=== PATIENT | female | born 1945 | race Caucasian/White ===

== ENCOUNTER 2017-12-14 11:35 | Emergency (ER) | payer MEDICARE, SELFPAY ==
--- NOTE | 2017-12-14 11:40 | DI.RAD.S_ITS ---
PROCEDURE: XR ANKLE RT MIN 3V INDICATIONS: Ankle injury. TECHNIQUE: AP, mortise, and lateral views of the ankle were acquired. COMPARISON: None. FINDINGS: Bones: There is an acute oblique fracture through the distal fibula which appears to terminate at the syndesmosis. There is also a small avulsion fracture at the inferior tip of the medial malleolus. There is mild widening of the lateral gutter of the ankle mortise, concerning for ankle instability. Soft tissues: There is a small ankle joint effusion. There is soft tissue swelling surrounding the ankle. IMPRESSION: Acute oblique right distal fibular fracture with additional avulsion fracture of the inferior tip of the right medial malleolus. Mild widening of the lateral gutter of the ankle mortise is concerning for ankle instability. Dictated by: Biju De La Cruz M.D. on 12/14/2017 at 12:18 Approved by: Biju De La Cruz M.D. on 12/14/2017 at 12:23
[2017-12-14 11:41] VITALS: BP 166/76; PULSE 73; RESP 18; TEMP 36.7; O2SAT 100; BMI 28.1
[2017-12-14 12:16] VITALS: BP 136/74; PULSE 68; RESP 15; O2SAT 98
--- NOTE | 2017-12-14 12:16 | PC.NURSE ---
Pt [place] the [place] and felt dizzy all of the sudden and may have blacked out for a very brief moment. She denies any chest pain or shortness of breath or palpitations at this time, but did say she was feeling a little sweaty on her forehead at the time. No hx of syncopal episodes or any cardiac issues in the past.
[2017-12-14 13:00] VITALS: BP 122/72; PULSE 67; RESP 14; O2SAT 97
[2017-12-14 13:34] VITALS: BP 140/73; PULSE 69; RESP 15; O2SAT 100
[2017-12-14 14:02] VITALS: BP 127/97; PULSE 70; RESP 15; O2SAT 100
--- NOTE | 2017-12-14 20:52 | ED_ITS ---
HPI - Extremity Injury (Lower) General Chief Complaint: Extremity Injury, Lower Stated Complaint: GLF, R ankle swelling Time Seen by Provider: 12/14/17 11:40 Source: patient and family Mode of arrival: ambulatory Limitations: no limitations History of Present Illness HPI Narrative: 72-year-old female with history of hypothyroid presents to the emergency department with an ankle injury after she became dizzy at the bank and fell. She denies any head neck or back pain. She is otherwise completely asymptomatic. Her injury is closed, isolated and neurovascularly intact. She denies any ft, knee or hip pain MD complaint: ankle injury Onset (ago): minute(s) Injury: Right: foot Type of Injury: inversion Place: street/outdoors Severity: moderate Relieving factors: immobilization Exacerbating factors: weight bearing and movement Context: direct blow Associated symptoms: snap/pop sensation Other symptoms: none Related Data Home Medications Medication Instructions Recorded Confirmed calcitriol 1 cap PO DAILY 12/14/17 12/14/17 calcium carbonate 2 tab PO DAILY 12/14/17 12/14/17 levothyroxine 75 mcg PO DAILY 12/14/17 12/14/17 venlafaxine 1 cap PO DAILY 12/14/17 12/14/17 Previous Rx's Medication Instructions Recorded hydrocodone-acetaminophen 1 tab PO Q4-6H PRN #20 tab 12/14/17 Allergies Allergy/AdvReac Type Severity Reaction Status Date / Time No Known Drug Allergies Allergy Verified 12/14/17 12:25 Review of Systems Review of Systems All systems reviewed & are unremarkable except as noted in HPI and below Constitutional Denies chills, Denies fever(s), Denies lethargy and Denies weakness Eyes Denies change in vision, Denies eye discharge, Denies irritation and Denies loss of vision ENT Ears, Nose, Mouth, and Throat: Denies change in voice, Denies neck pain and Denies sore throat Cardiovascular Denies chest pain, Denies irregular heart rhythm, Denies lightheadedness, Denies palpitations, Denies dyspnea, Denies dyspnea on exertion and Denies orthopnea Respiratory Denies cough, Denies dyspnea, Denies dyspnea on exertion and Denies wheezing Gastrointestinal Gastrointestinal: Denies abdominal pain, Denies change in bowel habits, Denies diarrhea, Denies nausea and Denies vomiting Genitourinary Denies hematuria, Denies flank pain, Denies urinary incontinence and Denies urinary urgency Musculoskeletal Reports joint swelling, Reports limited range of motion and Denies neck pain Integumentary/Breasts Denies pruritus, Denies erythema, Denies rash and Denies wounds Neurologic Denies confusion, Denies loss of vision and Denies weakness Psychiatric Denies anxiety, Denies confusion, Denies depression, Denies homicidal ideation and Denies suicidal ideation Endocrine Denies palpitations Hematologic/Lymphatic Denies easy bruising Allergic/Immunologic Denies wheezing PFSH Social History Smoking Status: Never smoker Exam Narrative Exam Narrative: GEN: AOx3 and in mild distress EYES: Pupils are equal, round, and reactive to light and accommodation. Extraoccular muscles are intact bilaterally. There is no subconjunctival hemorrhage or exudate. CHEST: Lungs are clear to auscultation bilaterally and free of wheezes, rales, or rhonchi. Heart rate is regular rhythm, there are no murmurs, clicks, rubs, or gallops. There is no chest wall tenderness. ABD: Abdomen is soft and nontender. There is no guarding or rebound. Bowel sounds are normal in all 4 quadrants. There is no mass or organomegaly. EXT: Full but painful range of motion of right ankle. This is closed, isolated , and neurovascularly intact. Swelling and tenderness to palpation over lateral malleolus. SKIN: Warm, pink, and dry. No erythema or rash Initial Vital Signs Initial Vital Signs: Vital Signs Temperature 98.0 F 12/14/17 11:41 Pulse Rate 73 12/14/17 11:41 Respiratory Rate 18 12/14/17 11:41 Blood Pressure 166/76 H 12/14/17 11:41 Pulse Oximetry 100 12/14/17 11:41 Procedures Orthopedic Splinting/Casting Injury #1: Side: right Lower Extremity Injury Location: ankle Lower Extremity Immobilizer: boot orthosis Course Orders Ordered: ED Orders 12/14/17 11:40 XR ankle RT min 3V Stat EKG-12 Lead Stat Consultations Consultation #1: Dr. Espinal has reviewed the images and recommends splinting, nonweightbearing, crutches and follow-up. Vital Signs - 8 hr 12/14/17 13:00 12/14/17 13:34 12/14/17 14:02 Pulse Rate 67 69 70 Respiratory Rate 14 15 15 Blood Pressure [Left Arm] 122/72 H 140/73 H 127/97 H Pulse Oximetry 97 100 100 Discharge Plan Departure Patient Disposition: Home, Self-Care Clinical Impression: Fracture of distal end of right fibula Discharge Date/Time: 12/14/17 14:27 Interventions: ED Discharge Assessment Last Done: 12/14/17 14:26 Instructions: Ankle Fracture Activity Restrictions/Additional Instructions: NO WEIGHT BEARING NO WEIGHT BEARING NO WEIGHT BEARING You have been given an ortho boot for comfort and stabilization of your fracture , however this is not intended to be walked on. No weight-bearing of your fractured ankle Call [facility] for follow up, give the office a call. Let them know you were seen in the ER and I've spoken with Dr. Espinal and he wishes you to be seen in the office. Prescriptions: New hydrocodone-acetaminophen 5-325 mg tablet 1 tab PO Q4-6H PRN (Reason: pain) Qty: 20 RF: 0 No Action venlafaxine 37.5 mg capsule,extended release 24hr 1 cap PO DAILY RF: 0 levothyroxine 75 mcg tablet 75 mcg PO DAILY RF: 0 calcitriol 0.5 mcg capsule 1 cap PO DAILY RF: 0 calcium carbonate 2 tab PO DAILY RF: 0 Referrals: Carmelo Mendoza MD [Primary Care Provider] - Aditya Espinal MD [Physician] -
== END 2017-12-14 14:27 | disposition home or self-care (01) ==
PROVIDERS: Emergency Provider Emergency Medicine; PCP Family Medicine
DX: S82.831A Other fracture of upper and lower end of right fibula, initial encounter for closed fracture (principal); W19.XXXA Unspecified fall, initial encounter; R42 Dizziness and giddiness
CPT/HCPCS: 73610; 82962; 93005; 99283; 99284

== ENCOUNTER → 2018-08-17 11:24 | Outpatient (CLI) | payer MEDICARE, SELFPAY ==
--- NOTE | 2018-08-17 | DI.RAD.S_ITS ---
PROCEDURE: XR ELBOW RT MIN 3V INDICATIONS: RIGHT UPPER EXTREMITY PAIN POST FALL TECHNIQUE: 3 views of the elbow were acquired. COMPARISON: None. FINDINGS: Bones: No fractures or dislocations. No suspicious bony lesions. Soft tissues: No elbow joint effusion. No suspicious soft tissue calcifications. IMPRESSION: No trauma found, no effusion present, mild degenerative changes are incidentally noted at the elbow joint. Dictated by: Reynold Breen M.D. on 08/17/2018 at 13:18 Approved by: Reynold Breen M.D. on 08/17/2018 at 13:26
--- NOTE | 2018-08-17 | DI.RAD.S_ITS ---
PROCEDURE: XR SHOULDER RT MIN 2V INDICATIONS: RIGHT UPPER EXTREMITY PAIN POST FALL TECHNIQUE: 3 views of the shoulder were acquired. COMPARISON: [facility], , SHOULDER MINIMUM 2VIEW RIGHT, 11/26/2014, 14:48. FINDINGS: Bones: No dislocations but on the transscapular view there is a unusual lucency at the inferior tip of the scapula where a fracture would be suspected in this clinical circumstance, versus osteolytic process. No suspicious bony lesions. Visualized ribs appear intact. Soft tissues: No suspicious soft tissue calcifications. IMPRESSION: Please correlate for presence or absence of tenderness at the inferior aspect of the scapula. On the transscapular view there is a significant concern for either a fracture at this site or an osteolytic process. The area of concern is represented in several of the montage panel images, and seen on only one of the [address] scanning may be warranted depending on clinical status. Dictated by: Reynold Breen M.D. on 08/17/2018 at 13:02 Approved by: Reynold Breen M.D. on 08/17/2018 at 13:02
--- NOTE | 2018-08-17 | DI.RAD.S_ITS ---
PROCEDURE: XR HUMERUS RT 2V INDICATIONS: RIGHT UPPER EXTREMITY PAIN POST FALL TECHNIQUE: 2 views of the humerus were acquired. COMPARISON: [facility], , HUMERUS 2V RIGHT, 11/26/2014, 14:48. FINDINGS: Bones: No fractures or dislocations. No suspicious bony lesions. Soft tissues: No suspicious soft tissue calcifications. IMPRESSION: No trauma found. 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 Dictated by: Reynold Breen M.D. on 08/17/2018 at 13:26 Approved by: Reynold Breen M.D. on 08/17/2018 at 13:33
== END ==
PROVIDERS: PCP Family Medicine; Visit Provider Family Medicine
DX: M79.601 Pain in right arm (principal); M19.011 Primary osteoarthritis, right shoulder
CPT/HCPCS: 73030; 73060; 73080

== ENCOUNTER → 2018-08-30 11:50 | Outpatient (CLI) | payer MEDICARE, SELFPAY ==
--- NOTE | 2018-08-30 | DI.CT.S_ITS ---
PROCEDURE: CT UE RT W CON INDICATIONS: Right scapular pain. Abnormal X-ray TECHNIQUE: After the administration of intravenous contrast, 3 mm axial sections acquired of the right shoulder, with coronal and sagittal reformats. COMPARISON: [facility], CR, XR HUMERUS RT 2V, 08/17/2018, 11:31. [facility], CR, XR SHOULDER RT MIN 2V, 08/17/2018, 11:31. [facility], CR, XR ELBOW RT MIN 3V, 08/17/2018, 11:31. FINDINGS: Image quality: Diagnostic. Bones: No acute fracture or dislocation is identified involving the right scapula. Specifically, the inferior margin of the scapula is intact. No fractures involving the distal clavicle or of the proximal humerus are evident. Mild to moderate degenerative changes of the glenohumeral joint are present. There are moderate to severe degenerative changes of the acromioclavicular joint. Proximal migration of the humeral head with respect to the glenoid with near undersurface pseudoarticulation of the acromion with the superior margin of the humeral head is present. Soft tissues: There is no soft tissue mass or drainable fluid collection. There appears to be a glenohumeral joint effusion, which is small in size. No suspicious soft tissue enhancement is evident. There is moderate supraspinatus and infraspinatus muscle atrophy, suggesting chronic injuries to these tendons, which are likely full-thickness tears. No axillary lymphadenopathy is identified. The vascular structures of the axilla. Be grossly within normal limits. The included portions of the lung are unremarkable on the right, but not adequately characterized. IMPRESSION: 1. No acute fractures of the right shoulder. Specifically, the scapula is intact. 2. Mild to moderate degenerative changes of the glenohumeral joint. 3. Moderate to severe degenerative changes of the acromioclavicular joint. 4. 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 Please correlate clinically. Dictated by: Kp Vasques M.D. on 08/30/2018 at 13:33 Approved by: Kp Vasques M.D. on 08/30/2018 at 13:38
[2018-08-30 13:07] LABS: Alanine Aminotransferase 21 IU/L (9-52); Albumin 4.4 g/dL (3.5-5.0); Albumin Globulin Ratio 1.5 (1.0-2.8); Alkaline Phosphatase 65 U/L (38-126); Aspartate Aminotransferase 19 IU/L (14-36); BUN Creatinine Ratio 17.8 (6-22); Bilirubin Total 1.5 mg/dL (0.2-1.3); Blood Urea Nitrogen 16 mg/dL (7-17); Calcium 9.5 mg/dL (8.4-10.2); Carbon Dioxide 27 mmol/L (22-32); Chloride 100 mmol/L (98-107); Estimated Glomerular Filt Rate > 60.0 mL/min (>60); Globulin 2.9 g/dL (1.7-4.1); Glucose 93 mg/dL (80-110); HEMOLYSIS < 15 (0-50); Potassium 4.5 mmol/L (3.4-5.1); Sodium 138 mmol/L (137-145); Total Protein 7.3 g/dL (6.3-8.2)
== END ==
PROVIDERS: PCP Family Medicine; Visit Provider Family Medicine
DX: M25.511 Pain in right shoulder (principal); M19.011 Primary osteoarthritis, right shoulder
CPT/HCPCS: 36415; 73201; 80053; Q9967

== ENCOUNTER → 2019-02-21 10:02 | Outpatient (CLI) | payer MEDICARE, SELFPAY | PROVIDERS: PCP Family Medicine; Referring Provider Internal Medicine Endocrinology, Diabetes & Metabolism; Visit Provider Family Medicine | DX: M85.852 Other specified disorders of bone density and structure, left thigh (principal); Z78.0 Asymptomatic menopausal state; E07.9 Disorder of thyroid, unspecified; Z85.3 Personal history of malignant neoplasm of breast | CPT/HCPCS: 77080 ==

== ENCOUNTER → 2020-09-03 09:55 | Outpatient (CLI) | payer MEDICARE, SELFPAY ==
[2020-09-03] MEDS: COVID-19 VACC #1, MRNA(MOD) 100 MCG/0.5 ML VIAL IM (10:05)
== END ==
PROVIDERS: Visit Provider Internal Medicine
DX: Z23 Encounter for immunization (principal)
CPT/HCPCS: 0011A; 91301

== ENCOUNTER → 2020-10-02 09:52 | Outpatient (CLI) | payer MEDICARE, SELFPAY ==
[2020-10-02] MEDS: COVID-19 VACC #2, MRNA(MOD) 100 MCG/0.5 ML VIAL IM (10:02)
== END ==
PROVIDERS: Visit Provider Internal Medicine
DX: Z23 Encounter for immunization (principal)
CPT/HCPCS: 0012A; 91301

== ENCOUNTER → 2023-04-21 15:45 | Outpatient (CLI) | payer MEDICARE, SELFPAY ==
--- NOTE | 2023-04-21 15:50 | DI.RAD.S_ITS ---
PROCEDURE: XR TIBIA FUBULA RT 2V INDICATIONS: leg pain TECHNIQUE: 3 views of the tibia and fibula were acquired. COMPARISON: None. FINDINGS: Bones: No fractures or dislocations. No suspicious bony lesions. Soft tissues: No suspicious soft tissue calcifications or masses. IMPRESSION: No lower leg fracture or dislocation. No suspicious bony lesions or gross soft tissue abnormalities. Dictated by: Manjit Hinds M.D. on 04/21/2023 at 17:00 Approved by: Manjit Hinds M.D. on 04/21/2023 at 17:01
== END ==
PROVIDERS: Referring Provider Internal Medicine; Visit Provider Internal Medicine
DX: M79.604 Pain in right leg (principal)
CPT/HCPCS: 73590

== ENCOUNTER 2023-11-18 09:43 | Emergency (ER) | payer MEDICARE, SELFPAY ==
[2023-11-18 09:53] VITALS: BP 164/77; PULSE 84; RESP 16; TEMP 36.8; O2SAT 98; BMI 28.3
--- NOTE | 2023-11-18 10:32 | ED_ITS ---
HPI - Extremity Problem General Chief complaint: Extremity Problem,Nontraumatic Stated complaint: L leg aching Time Seen by Provider: 11/18/23 10:06 Source: patient and family Mode of arrival: Wheelchair History of Present Illness HPI Narrative: 78-year-old female who is here for evaluation of a left leg pain. She states that a couple days ago when she got out of bed she had discomfort. Is in the front and lateral aspect of the left leg. Has had progressively worsening pain since then. No pain with flexion-extension of the ankle. No pain on the back of the leg. No knee pain. She contacted her primary doctor's office who advis ed she come to the emergency department for further evaluation. No skin changes. She did take an Aleve without much improvement. Related Data Home Medications Medication Instructions Recorded Confirmed calcitriol 0.5 mcg capsule 1 cap PO DAILY 12/14/17 12/14/17 calcium carbonate 2 tab PO DAILY 12/14/17 12/14/17 levothyroxine 75 mcg tablet 75 mcg PO DAILY 12/14/17 12/14/17 venlafaxine 37.5 mg 1 cap PO DAILY 12/14/17 12/14/17 capsule,extended release 24 hr Previous Rx's Medication Instructions Recorded hydrocodone 5 mg-acetaminophen 325 1 tab PO Q4-6H PRN pain #20 tabs 12/14/17 mg tablet tramadol 50 mg tablet 50 mg PO Q8H PRN pain #10 tabs 11/18/23 Allergies Allergy/AdvReac Type Severity Reaction Status Date / Time No Known Drug Allergies Allergy Verified 11/18/23 10:00 Review of Systems Review of Systems Narrative: See HPI Patient History Social History Smoking Status: Never smoker Smoking Status: Never smoker alcohol intake frequency: holidays/special occasions only Substance Use Type: does not use Exam Initial Vital Signs Initial Vital Signs: Vital Signs Temperature 98.3 F 11/18/23 09:53 Pulse Rate 84 11/18/23 09:53 Respiratory Rate 16 11/18/23 09:53 Blood Pressure 164/77 H 11/18/23 09:53 Pulse Oximetry 98 11/18/23 09:53 Oxygen Delivery Method Room Air 11/18/23 09:53 Skin General: no rashes or lesions noted Neuro General: patient alert, patient awake and patient oriented x3 Extrem Other: She reports discomfort over the left tibialis anterior muscle region. No posterior leg tenderness. No knee tenderness. Course Orders Ordered: ED Orders 11/18/23 10:32 XR tibia fibula LT 2V Stat Discontinued Medications Tramadol HCl (Tramadol 50 Mg Tablet) 50 mg PO NOW ONE Stop: 11/18/23 11:09 Last Admin: 11/18/23 11:16 Dose: 50 mg Documented By: [facility] Vital Signs Vital signs: Vital Signs - 8 hr 11/18/23 09:53 Temperature 98.3 F Pulse Rate 84 Respiratory Rate 16 Blood Pressure 164/77 H Pulse Oximetry 98 Oxygen Delivery Method Room Air MDM - Extremity (Nontraumatic) Imaging Data Extremity x-ray #1: Radiologist's Impression: PROCEDURE: XR TIBIA FIBULA LT 2V INDICATIONS: Left mid tibia pain TECHNIQUE: 2 views of the tibia and fibula were acquired. COMPARISON: None. FINDINGS: Bones: No fractures or dislocations. No suspicious bony lesions. Soft tissues: No suspicious soft tissue calcifications or masses. IMPRESSION: No acute bony abnormality. [facility] Narrative Medical decision making narrative: I have low suspicion that this is a DVT. The discomfort is on the anterior lateral portion of the leg. Over the tibialis anterior muscle. There was no signs of cellulitis. No fracture on the x-ray I did discuss this with the patient. There is no indication for antibiotics. Will discharge patient home with conservative measures. She was given return precautions. She expressed understanding and agreement. Discharge Plan Departure Patient Disposition: Home Clinical Impression: Muscle strain of left lower leg Instructions: How To Perform RICE (Rest, Ice, Compress, Elevate) Activity Restrictions/Additional Instructions: Continue to take all of your medications as directed. You can walk 1 your leg as tolerated. Recommend conservative measures and continue to take anti-infl ammatories. Return to the emergency department for new symptoms. Prescriptions: New tramadol 50 mg tablet 50 mg PO Q8H PRN (Reason: pain) Qty: 10 0RF No Action venlafaxine 37.5 mg capsule,extended release 24hr 1 cap PO DAILY levothyroxine 75 mcg tablet 75 mcg PO DAILY calcitriol 0.5 mcg capsule 1 cap PO DAILY calcium carbonate 2 tab PO DAILY hydrocodone-acetaminophen 5-325 mg tablet 1 tab PO Q4-6H PRN (Reason: pain) Qty: 20 0RF Stand Alone Forms: Patient Portal/API
--- NOTE | 2023-11-18 10:32 | DI.RAD.S_ITS ---
PROCEDURE: XR TIBIA FIBULA LT 2V INDICATIONS: Left mid tibia pain TECHNIQUE: 2 views of the tibia and fibula were acquired. COMPARISON: None. FINDINGS: Bones: No fractures or dislocations. No suspicious bony lesions. Soft tissues: No suspicious soft tissue calcifications or masses. IMPRESSION: No acute bony abnormality. Dictated by: Rachell Dixon MD, PhD on 11/18/2023 at 10:51 Approved by: Rachell Dixon MD, PhD on 11/18/2023 at 10:51
[2023-11-18] MEDS: TRAMADOL 50 MG TABLET PO (11:16)
== END 2023-11-18 11:22 | disposition home or self-care (01) ==
PROVIDERS: Emergency Provider Emergency Medicine
DX: S86.912A Strain of unspecified muscle(s) and tendon(s) at lower leg level, left leg, initial encounter (principal); X58.XXXA Exposure to other specified factors, initial encounter
CPT/HCPCS: 73590; 99283

== ENCOUNTER → 2023-12-01 18:45 | Outpatient (CLI) | payer MEDICARE, SELFPAY ==
--- NOTE | 2023-12-01 18:47 | DI.MRI.S_ITS ---
PROCEDURE: MR LUMBAR SPINE WO CON INDICATIONS: LEFT LUMBAR RADICULOPATHY TECHNIQUE: Noncontrast sagittal T1 spin echo and T2 fast echo, sagittal STIR, and T2 fast spin echo through the lumbar spine. In cases with scoliosis, additional coronal T2 fast spin echo may be performed. COMPARISON: None. FINDINGS: Image quality: Excellent. Alignment and Curvature: There is trace anterolisthesis of L4 on L5. Bone Marrow: Marrow is of normal overall signal. Minimal reactive endplate changes at L4-5. No acute vertebral body compression fractures. Spinal Cord: Conus medullaris terminates at the L1 level. Visualized cord demonstrates normal signal and size. Paraspinous Soft Tissues: No paravertebral masses. Discs: Multilevel [id number] disc desiccation most severe at L4-5. T12-L1: No disc bulge, spinal stenosis or foraminal narrowing. L1-L2: Minimal disc bulge without spinal stenosis or foraminal narrowing. Facet and ligamentum flavum hypertrophy are present. L2-L3: Mild disc bulge with mild spinal stenosis. Facet and ligamentum flavum hypertrophy are present. L3-L4: Mild disc bulge with moderate spinal stenosis. Moderate left and minimal right foraminal narrowing with facet and ligamentum flavum hypertrophy. L4-L5: Mild disc bulge with [id number] spinal stenosis. Moderate to severe right and moderate left foraminal narrowing with facet and ligamentum flavum hypertrophy. L5-S1: Mild disc bulge without spinal stenosis or foraminal narrowing. Facet hypertrophy is present. IMPRESSION: Multilevel disc bulges. Multilevel spinal stenosis most severe at L3-4 secondary to disc bulge with contributing effect of facet/ligamentum flavum arthropathy. Multilevel foraminal narrowing most severe at L4-5 secondary to facet/ligamentum flavum arthropathy. Dictated by: Nancy Keyes M.D. on 12/02/2023 at 16:50 Approved by: Nancy Keyes M.D. on 12/02/2023 at 16:52
== END ==
PROVIDERS: PCP Internal Medicine
DX: M51.16 Intervertebral disc disorders with radiculopathy, lumbar region (principal); M51.17 Intervertebral disc disorders with radiculopathy, lumbosacral region; M48.061 Spinal stenosis, lumbar region without neurogenic claudication
CPT/HCPCS: 72148